=== PATIENT | male | born 1950 | race Caucasian/White ===

== ENCOUNTER 2016-05-25 15:14 | Emergency (ER) | payer BC ==
[2016-05-25 16:12] LABS: Hematocrit 38.3 % (42.0-52.0); Hemoglobin 13.4 gm/dL (13.5-18.0); Mean Cell Volume 86.1 fl (78-100); Mean Corpuscular Hemoglobin 30.1 pg (27-31); Neutrophil % 71.4 % (42-75.0); Platelet Count 187 K/mm3 (150-450); Red Blood Count 4.45 M/mm3 (4.7-6.0); Red Cell Distribution Width 12.9 % (11.5-14.0)
--- OUTSIDE RECORDS SUMMARY | 2016-05-25 16:15 | XMS REPORT | Continuity of Care Document ---
:1950 Author Organization [facility] [place] [address] Care Team Providers Name Role Phone Cecilio Meredith Primary Care Provider [phone] Source Comments This disclosure is being made pursuant to the [employer] [facility] program and maynot contain all information available regarding this patient.[facility] Active Allergies and Adverse Reactions No Known Allergies Current Medications Be aware that medications may not be up to date as of this document. Alwaysverify current medications with the patient. Prescription Sig. Disp. Refills Start Date End Date Status aspirin 325 MG tablet Take 325 mg by Active mouth. lisinopril-hydrochlor Take 1 tablet by Active othiazide mouth daily. (PRINZIDE,ZESTORETIC) 20-12.5 MG per tablet FLUVIRIN INJ 0 03/26/2014 Active CRESTOR 20 MG tablet 5 11/17/2014 Active sertraline (ZOLOFT) One and half tab 135 tablet 2 01/15/2016 Active 100 MG tablet oral am metFORMIN Take one tablet by 3 12/15/2015 Active (GLUCOPHAGE) 500 MG mouth daily in the tablet afternoon rOPINIRole (REQUIP) TAKE 1 TAB DAILY 0 01/05/2016 Active 0.5 MG tablet IN THE PM. Active Problems No known active problems Most Recent Encounters Date Type Specialty Providers Description 03/28/2016 Data Import Social History Tobacco Use Types Packs/Day Years Used Date Never Smoker Last Filed Vital Signs Vital Sign Reading Time Taken Blood Pressure 124/70 01/15/2016 5:09 PM CDT Pulse - - Temperature - - Respiratory Rate - - Height 1.803 m (5' 11") 01/15/2016 5:09 PM CDT Weight 97.126 kg (214 lb 2 oz) 01/15/2016 5:09 PM CDT Body Mass Index 29.88 01/15/2016 5:09 PM CDT Oxygen Saturation - - Plan of Care Date Type Specialty Providers Description 11/07/2016 Appointment Family Medicine Cecilio Meredith MD [address] [id number] [phone] (Fax) Health Maintenance Due Date Last Done Comments Hepatitis C Screening 1970 Tetanus/Pertussis (1 - Tdap) 10/29/1971 Colonoscopy 2002 Well Adult Visit 2002 Zoster Vaccine 60+ 2012 Influenza Immunization (#1) 2015 Results from Last 3 Months Not on file
--- OUTSIDE RECORDS SUMMARY | 2016-05-25 16:15 | XMS REPORT | Continuity of Care Document ---
:1950 Author Organization [facility] ([facility]) Address [address] [place] [address] Phone [phone] Care Team Providers Name Role Phone Tino Stephens Primary Care Provider [phone] Source Comments This disclosure is being made pursuant to the Care Everywhere program, applicable federal and state laws, and may not contain all informaitonavailable regarding this patient.[facility] ([facility]) Active Allergies and Adverse Reactions No Active Allergies Current Medications Not on file Active Problems Not on file Social History Tobacco Use Types Packs/Day Years Used Date Never Assessed Last Filed Vital Signs Vital Sign Reading Time Taken Blood Pressure 116/70 06/03/2006 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 Pulse 56 06/03/2006 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 Temperature - - Respiratory Rate 14 06/03/2006 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 Height 1.803 m (5' 11") 02/06/2001 1:45 PM CDT Weight 92.996 kg (205 lb 0.3 oz) 06/03/2006 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 Body Mass Index 28.61 06/03/2006 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 Oxygen Saturation - - Plan of Care Health Maintenance Due Date Last Done Comments HCV Screening 1950 Hepatitis B Vaccine (1 of 3 - Primary Series) 1950 Tdap Vaccine 10/29/1963 Td Vaccine 1970 Colonoscopy 2002 Prostate Cancer Screening 2002 Lipid Disorder Screening 02/07/2006 02/07/2001 Zoster Vaccine 2012 Influenza Vaccine: Seasonal (#1) 11/13/2015 Results from Last 3 Months Not on file
[2016-05-25 16:23] LABS: ALT 44 U/L (19-67); AST 24 U/L (0-48); Albumin * 4.1 gm/dl (3.4-5.0); Alkaline Phosphatase * 51 U/L (50-170); Anion Gap 15.1 mmol/L (6.8-13.8); BUN/Creatinine Ratio 10.6 (9.0-21.6); Bilirubin, Total 0.5 mg/dL (0.0-1.1); Blood Urea Nitrogen 11 mg/dL (6-23); Ca. Corrected For Albumin 8.8 mg/dL (8.4-10.2); Calcium * 9.2 mg/dL (7.9-10.9); Carbon Dioxide 26.8 mmol/L (24-32.6); Chloride 101 mmol/L (97-106); Glucose * 228 mg/dL (70-110); Potassium 3.9 mmol/L (3.4-4.6); Sodium 139 mmol/L (132-142); Total Protein 7.5 gm/dL (6.2-8.2)
[2016-05-25 16:34] LABS: Urine Appearance Clear; Urine Bacteria None Seen; Urine Bilirubin Negative (NEGATIVE); Urine Blood 10 /ul (NEGATIVE); Urine Color Yellow; Urine Ketone Negative (NEGATIVE); Urine Nitrite Negative (NEGATIVE); Urine Protein Negative (NEGATIVE); Urine Specific Gravity 1.025 SP.GR. (1.005-1.030); Urine Urobilinogen Normal (NORMAL); Urine WBC None Seen /hpf (0-5)
[2016-05-25 16:35] VITALS: BP 122/56
[2016-05-25 16:35] LABS: Urine RBC 0-5 /hpf (0-5)
[2016-05-25] MEDS ORDERED: DIATRIZOATE MEGLU/DIATRIZO SOD 30 ML BTL PO ONE (17:17)
[2016-05-25] MEDS ORDERED: DIATRIZOATE MEGLU/DIATRIZO SOD 30 ML BTL ONE (17:21)
--- NOTE | 2016-05-25 18:42 | ERNOTE ---
Abdominal HPI - Narrative Date of Service: 05/25/16 - General Chief Complaint: Abdominal Pain Time Seen by Provider: 05/25/16 15:40 Source: patient Exam Limitations: no limitations - Immun/Allergies/Home Medications Immunizatons: IMMUNIZATION HX Immunizations Up to Date Yes History of Influenza Vaccine Yes Hx Pneumococcal Vaccination No Allergies/Adverse Reactions: Allergies cephalexin monohydrate [From Keflex] Allergy (Verified 08/02/15 14:43) Home Medications: HOME MEDICATIONS Lisinopril/Hydrochlorothiazide [Lisinopril-Hctz 20-12.5 mg Tab] 1 each PO DAILY 10/22/14 [Last Taken 08/01/15] Rosuvastatin Calcium [Crestor] 20 mg PO DAILY 10/22/14 [Last Taken 08/01/15] Sertraline HCl [Zoloft] 100 mg PO DAILY 10/22/14 [Last Taken 08/01/15] Vitamin B Complex 1 each PO DAILY 05/25/16 [Last Taken Unknown] metFORMIN HCL [Glucophage] 850 mg PO BID 05/25/16 [Last Taken Unknown] - History of Present Illness Narrative: Patient presents to the ED for abdominal pain. He relates he has been having right low abdominal pain off and on. He cannot tell me exactly how long this has been going on for but increased today. RLQ. Achy pain. Nothing really seems to make it better or worse. No vomiting or diarrhea. No dysuria. No testicular pain. Has not seen anyone else for this. Pain waxes and wanes. Mild right now. Timing: intermittent Quality: mild Activities at Onset: none Modifying Factors - (Improves): Present: other - nothing Modifying Factors - (Worsens): Present: other - nothing Associated Symptoms: Absent: chest pain, fever/chills, nausea, vomiting, shortness of breath Prior Abdominal Problems: Present: none Prior Treatment: Absent: recently seen Review of Systems - Review of Systems Constitutional: Absent: fever ENT: Present: no symptoms reported Respiratory: Absent: shortness of breath Cardiology: Absent: chest pain Gastrointestinal/Abdominal: Present: See HPI Genitourinary: Absent: dysuria All Other Systems: All systems neg except as marked - Patient's Past Medical History Patient History - Medical: Diabetes Type 2, Depression, Kidney stone Patient History - Cardiac/Respiratory: Coronary Heart Disease Patient History - Cancer: No Hx of Cancer Patient History - Surgical Procedures: Cardiac stent Patient History - Other: None - Family History Mother Family History - Medical: Father Family History - Medical: Brother Family History - Medical: - Social History Living Situations: spouse Abuse History: No History of abuse Psych History: Hx of Anxiety, Hx of Depression Smoking Status: Never smoker Have you smoked in the past 12 months: No Do you dip or chew tobacco: No Alcohol Use: none Drug Use: none - Immunizations Immunizations Up to Date: Yes Hx Pneumococcal Vaccination: No History of Influenza Vaccine: Yes Physical Exam - Physical Exam General Appearance: Present: alert, no apparent distress Eye Exam: Normal inspection: bilateral, PERRL: bilateral Ears, Nose, Throat: Present: normal ENT inspection Neck: Present: normal inspection Respiratory: Present: no respiratory distress, normal breath sounds, no accessory muscle use, lungs clear Cardiovascular/Chest: Present: regular rate, rhythm Gastrointestinal/Abdominal: Present: normal bowel sounds, nondistended, soft, no organomegaly, other - Milr RLQ tendenress to palpation. i cannot discern a hernia. Absent: guarding, rebound Male Genitals Exam: Present: other - No clear hernia noted. 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 - Vital Signs Patient's Vital Signs:: I have reviewed the patient's vital signs. Vital Signs: Vital Signs 05/25/16 05/25/16 15:33 16:34 Temperature 35.3 C L Pulse Rate 75 69 Respiratory 20 18 Rate Blood Pressure 139/77 122/56 O2 Sat by Pulse 95 94 Oximetry - CT/Ultrasound CT/Ultrasound Narrative: Normal appendix. No surgical process. No clear etiology of the patient's Sx. Report reviewed. - Progress/Reassessment Chief Complaint: Abdominal Pain Progress Note-Subjective: 05/25/16 19:34 Discused results. No surgical process. No RUQ tendenerss. I stressed that he needs to see his doctor friday in follow-up. He wants to go home. Departure - Departure Clinical Impression: Abdominal pain Disposition: Home self-care Instructions: Abdominal Pain, Adult, [id number] Additional Instructions: Rest. Fluids. Follow-up friday with primary doctor to discuss CT results and further testing. Return here for fever, vomiting, increased pain or if your condition worsens or changes in any way. Referrals: Cecilio Meredith MD [Primary Care Provider] -
== END 2016-05-25 20:21 | disposition home or self-care (01) ==
LOC: ER 15:14
DX: R10.31 Right lower quadrant pain (principal); E11.9 Type 2 diabetes mellitus without complications; Z87.442 Personal history of urinary calculi